=== PATIENT | male | born 1990 | race Asian ===

== ENCOUNTER 2017-07-02 14:49 | Emergency (ER) | payer OTHER, MEDICAID ==
[~2017-07-02] VITALS: Ht 170.2 cm; Wt 77.3 kg
[2017-07-02 17:15] VITALS: BP 132/76
== END 2017-07-02 18:16 | disposition home or self-care (01) ==
LOC: EEVIPCON 14:54 → EMS 14:54
DX: R03.0 Elevated blood-pressure reading, without diagnosis of hypertension (principal); M54.2 Cervicalgia; M54.6 Pain in thoracic spine; F17.210 Nicotine dependence, cigarettes, uncomplicated; V43.52XA Car driver injured in collision with other type car in traffic accident, initial encounter; Y93.89 Activity, other specified; Y92.89 Other specified places as the place of occurrence of the external cause; Y99.8 Other external cause status
CPT/HCPCS: 99283